=== PATIENT | male | born 1990 | race Caucasian/White ===

== ENCOUNTER 2016-12-16 08:55 | Emergency (ER) | payer OTHER ==
[2016-12-16] MEDS ORDERED: IBUPROFEN 400 MG TABLET PO ONE (09:10)
--- NOTE | 2016-12-16 09:19 | ERNOTE ---
ENT HPI Time Seen by Provider: 12/16/16 09:05 Source: patient Exam Limitations: no limitations - Immun/Allergies/Home Medications Immunizations: IMMUNIZATION HX Immunizations Up to Date No History of Influenza Vaccine No Allergies/Adverse Reactions: Allergies Allergy/AdvReac Type Severity Reaction Status Date / Time No Known Allergies Allergy Verified 12/16/16 09:03 Home Medications: HOME MEDICATIONS Ibuprofen [Motrin] 800 mg PO TID PRN #60 tab 12/16/16 [Last Taken Unknown] Venlafaxine HCl [Effexor] 75 mg PO DAILY 12/16/16 [Last Taken Unknown] - History of Present Illness Narrative: Patient was yawning yesterday afternoon when he felt a crunch in his left jaw and has had pain ever since. He denies any other injuries, pain was only mild at first but got more severe when he woke up this morning. It hurts to chew, has not taken any pain medications yet Review of Systems - Review of Systems Constitutional: Absent: recent illness, fever EYE: Absent: eye pain ENT: Absent: ear pain, nose congestion, nasal drainage, sore throat Respiratory: Absent: shortness of breath Cardiology: Absent: chest pain Gastrointestinal/Abdominal: Absent: nausea, vomiting, abdominal pain Genitourinary: Present: no symptoms reported Musculoskeletal: Absent: back pain Skin: Absent: rash Neurological: Absent: headache - Patient's Past Medical History Patient History - Medical: Depression Patient History - Cardiac/Respiratory: No pertinent hx Patient History - Cancer: No Hx of Cancer Patient History - Other: None - Family History Mother Family History - Medical: No pertinent hx Father Family History - Medical: No pertinent hx - Social History Living Situations: home Abuse History: No History of abuse Psych History: No pertinent hx Alcohol Use: rarely Drug Use: none - Immunizations Immunizations Up to Date: No History of Influenza Vaccine: No Physical Exam - Physical Exam General Appearance: Present: wd/wn, alert, no apparent distress Eye Exam: Normal inspection: bilateral, PERRL: bilateral Ears, Nose, Throat: Present: normal ENT inspection, normal pharynx, other - patient tender over left TMJ, able to open mouth partially, normal exam otherwise, no other tenderness Respiratory: Present: no respiratory distress, normal breath sounds, lungs clear Cardiovascular/Chest: Present: regular rate, rhythm, no murmur Neurological Exam: Present: alert, oriented, normal mood/affect Skin Exam: Present: normal color, warm/dry ED Progress - Vital Signs Patient's Vital Signs:: I have reviewed the patient's vital signs. Vital Signs: Vital Signs 12/16/16 08:59 Temperature 36.6 C Pulse Rate 65 Respiratory 12 Rate Blood Pressure 141/72 O2 Sat by Pulse 93 Oximetry - X-Ray X-Ray #1 X-Ray: mandible Interpretation: Reviewed by me - no acute bony abnormality - Progress/Reassessment Chief Complaint: Facial Injury Progress Note-Subjective: 12/16/16 10:04 discussed xray results and follow up Departure Clinical Impression: TMJ (temporomandibular joint disorder) - Departure Disposition: Home self-care Condition: Good Instructions: Form - Excuse from Work, School, or Physical Activity, Temporomandibular Joint Syndrome Additional Instructions: call Dr Sy's office for follow up Referrals: Callum Sy MD [[facility]] - Prescriptions: Ibuprofen [Motrin] 800 mg PO TID PRN #60 tab PRN Reason: Pain
[2016-12-16] MEDS ORDERED: IBUPROFEN 400 MG TABLET ONE (09:20)
[2016-12-16 10:12] VITALS: BP 138/75
== END 2016-12-16 10:14 | disposition home or self-care (01) ==
LOC: ER 08:55
DX: M26.609 Unspecified temporomandibular joint disorder, unspecified side (principal)

== ENCOUNTER 2017-01-01 13:04 | Day surgery (SDC) | payer OTHER ==
[~2017-01-01 13:04] MED LIST: MORPHINE SULFATE 2 MG/ML DISP.SYRIN IV PRN; NORMAL SALINE 1,000 ML IV PRN; ceFAZolin SODIUM 2 GM in DEXTROSE 5 % IN WATER 50 ML IV PRN; oxyCODONE HCL/ACETAMINOPHEN 1 TAB TABLET PO PRN
[2017-01-01] MEDS ORDERED: NORMAL SALINE 1,000 ML IV ONE (13:52)
[2017-01-01] MEDS ORDERED: ceFAZolin SODIUM 1 GM VIAL IV ONE (14:25)
[2017-01-01] MEDS ORDERED: BUPIVACAINE HCL 50 ML VIAL IJ ONE ×2 (14:35)
[2017-01-01] MEDS ORDERED: BACITRACIN ZINC 30 APPL TUBE TP ONE (14:50)
--- NOTE | 2017-01-01 14:55 | OR ---
Operative Report - Dictated Report Narrative: Location: Main OR Anesthesia: MAC anesthesia Local .25% Marcain Surgeon: Dr. Glez Preoperative diagnosis: Desired Sterilization Postoperative diagnosis: same Procedure: Vasectomy Bilateral Description: Consent obtained. Patient brought to the operating room and placed in the dorsal lithotomy position. Prepped and draped. MAC anesthesia provided. Timeout taken per protocol. Left vas identified and grasped with a towel piercing forceps. Small skin incision made using a scalpel. Vas grasped with ring and pulled per incision. Greater than 1 cm segment isolated, transected, fulgurated, tied with 2-0 silk. Vasal sheath infiltrated with quarter percent Marcaine, irrigation then carried out. . The vas was returned to its normal anatomic location. Skin incision closed with interrupted 3-0 chromic and infiltrated with quarter percent Marcaine. Identical procedure performed on the opposite side in an identical fashion. 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
[2017-01-01 16:06] VITALS: BP 128/61
== END 2017-01-01 13:05 | disposition home or self-care (01) ==
LOC: AMB 13:04
PROVIDERS: ATTEND Urology
PROC: 0VBQ0ZZ Excision of Bilateral Vas Deferens, Open Approach (ICD-10-PCS; principal; 2017-01-01 15:55)
DX: Z30.2 Encounter for sterilization (principal); Z68.35 Body mass index [BMI] 35.0-35.9, adult